=== PATIENT | male | born 1965 | race American Indian/Alaskan Native ===

== ENCOUNTER 2019-11-14 08:43 | Day surgery (SDC) | payer OTHER ==
[~2019-11-14 08:43] MED LIST: SODIUM CHLORIDE 0.9% 1000 ML 1,000 ML IV SCH
--- NOTE | 2019-11-14 09:52 | Anesthesia Day of Surgery ---
Anesthesia Day of Surgery - Day of Surgery Patient Examined: Yes Patient H&P Reviewed: Yes Patient is NPO: Yes
--- NOTE | 2019-11-14 09:56 | Anesthesia Consultation ---
Anesthesia Consult and Med Hx Date of service: 11/14/19 - Airway Anesthetic Teeth Evaluation: Chipped ROM Head & Neck: Adequate Mental/Hyoid Distance: Adequate Mallampati Class: Class II Intubation Access Assessment: Probably Good - Pulmonary Exam CTA: Yes - Cardiac Exam Cardiac Exam: RRR - Pre-Operative Health Status ASA Pre-Surgery Classification: ASA3 Proposed Anesthetic Plan: MAC - Pulmonary Hx Sleep Apnea: Yes (not on CAPA) - Cardiovascular System Hx Hypertension: Yes - Endocrine Hx Non-Insulin Dependent Diabetes: Yes
[2019-11-14] MEDS ORDERED: propofoL 200 MG/20 ML VIAL IV ONE ×2 (12:28)
--- NOTE | 2019-11-14 12:59 | Short Stay Summary ---
Short Stay Documentation Date of service: 11/14/19 - History Principal diagnosis: Screening for colorectal cancer H&P: obtained from office Past Medical History: other (no changes from clinic note) Past Surgical History: Other (no changes) Social history: no significant social history - Allergies and Medications Current Medications: Allergies No Known Allergies Allergy (Verified 11/09/19 11:53) Home Medications Medication Instructions Recorded Confirmed Last Taken Type glipiZIDE 5 mg PO BID 11/13/19 11/14/19 11/13/19 History metFORMIN 1,000 mg PO DAILY 11/13/19 11/14/19 11/13/19 History Atenolol 50 mg PO DAILY 11/14/19 11/14/19 11/12/19 History Ezetimibe 10 mg PO DAILY 11/14/19 11/14/19 11/12/19 History Telmisartan 80 mg PO DAILY 11/14/19 11/14/19 11/12/19 History amLODIPine 5 mg PO DAILY 11/14/19 11/14/19 11/12/19 History Active Medications Sodium Chloride (Nacl 0.9% 1000 Ml) 1,000 mls @ 50 mls/hr IV DIRECT KATHIA Last Admin: 11/14/19 10:36 Dose: 50 mls/hr Documented by: - Physical exam General appearance: obese Lungs: Clear to auscultation Gastrointestinal: normal - Brief post op/procedure progress note Date of procedure: 11/14/19 Pre-op diagnosis: screening for colorectal cancer Post-op diagnosis: same Procedure: Colonoscopy Anesthesia: MAC Findings: Fair prep, normal colonoscopy Surgeon: HEATHER RYDER Estimated blood loss: none Pathology: none Condition: stable - Disposition Condition at discharge: Good Disposition: DC-01 TO HOME OR SELFCARE Short Stay Discharge Plan Follow up with: SANTOS MEADOWS NP-C [Primary Care Provider] - 7 Days
--- NOTE | 2019-11-14 13:03 | Operative Report ---
Operative Report Operative Report: Colonoscopy Procedure Note Date of procedure: 11/14/2019 Endoscopist: Dwight Funes Pre-op diagnosis/indication: Screening for colorectal cancer Post-op diagnosis: Fair prep, normal colonoscopy MEDICATIONS: MAC COMPLICATIONS: No immediate complications ESTIMATED BLOOD LOSS: None DESCRIPTION OF PROCEDURE: After consent was obtained, the patient was placed in the left lateral decubitis position. The olympus colonoscope was inserted into the rectum and advanced to the cecum. The procedure was technically difficult due to looping/tortuous colon and body habitus (cecum reached with positional change and abdominal pressure). The patient tolerated the procedure well. The views of the mucosa were fair. The quality of prep was fair. The patients vital signs were monitored continuously throughout the procedure. FINDINGS: The entire examined colon appeared normal. Fair prep to cecum. IMPRESSION: 1. Fair prep, normal colonoscopy. RECOMMENDATIONS: -repeat colonoscopy in 3-5 years for screening purposes (Due to fair prep)
[2019-11-14 13:32] VITALS: BP 126/87
--- NOTE | 2019-11-14 14:37 | Post Anesthesia Evaluation ---
- Post Anesthesia Evaluation Patient Participated: Yes Airway Patent: Yes Stable Respiratory Function: Yes Nausea/Vomiting: No Temp > 96.8F: Yes Pain Manageable: Yes Adequeate Hydration: Yes Anesthesia Complications: No Block Receding Appropriately: Not Applicable Patient on Ventilator: No
== END 2019-11-14 08:44 | disposition home or self-care (01) ==
LOC: GIO 08:43
PROVIDERS: ATTEND Internal Medicine Gastroenterology
DX: Z12.11 Encounter for screening for malignant neoplasm of colon (principal); G47.30 Sleep apnea, unspecified; I10 Essential (primary) hypertension; E11.9 Type 2 diabetes mellitus without complications; Z79.84 Long term (current) use of oral hypoglycemic drugs; Z79.899 Other long term (current) drug therapy
CPT/HCPCS: 45378; 82962; J2704; J7030